=== PATIENT | male | born 1985 | race Two or more races ===

== ENCOUNTER 2025-09-25 22:35 | Emergency (ER) | payer OTHER ==
[~2025-09-25] VITALS: Ht 172.7 cm; Wt 85.8 kg
--- NOTE | 2025-09-25 23:21 | ED.PDOC ---
History of Present Illness HPI Comments 30-year-old male who presents to the ED with a chief complaint of flank pain onset today. Patient states he was sleeping, woke up due to RT flank pain, for the past day has been experiencing dysuria with burning sensation. Rates pain 08/23, experienced similar symptoms about 6 months ago, was seen at an ED, was told workup was negative. Denies nausea, vomiting, diarrhea, chest pain, dizziness, blurred vision, hematuria, hematemesis, blood in stool, melena, fever, chills. No other symptoms or modifying factors present at this time. PHYSICAL EXAM: General: Awake, alert and oriented. Skin: Skin in warm, dry and intact. Appropriate color for ethnicity. HEENT: The head is normocephalic and atraumatic. Conjunctivae are clear without exudates or hemorrhage. Sclera is non-icteric. Eyelids are normal in appearance without swelling or lesions. Oral mucosa is pink and moist Neck: The neck is supple with normal range of motion. No JVD. Cardiac: Heart rate and rhythm are normal. No murmurs, gallops, or rubs are auscultated. Respiratory: No signs of respiratory distress. Lung sounds are clear in all lobes bilaterally without rales, rhonchi, or wheezes. Abdominal: RT CVA tenderness Extremities: Upper and lower extremities are atraumatic in appearance without deformity or edema. Neurological: The patient is awake, alert and oriented to person, place, and time with normal speech. Speech is clear. There is no facial asymmetry. Psychiatric: Appropriate mood and affect. Good judgement and insight. REVIEW OF SYSTEMS: General: No fever, no chills, or fatigue HEENT: No sore throat, no earache, no congestion, no neck pain. Cardiac: No chest pain. No palpitations. Lungs: No shortness of breath, no cough. GI: No nausea, no vomiting, no diarrhea, no constipation, no abdominal pain : Dysuria, RT flank pain Musculoskeletal: No joint pain , no joint swelling, no extremity edema. Skin: No rash, no itching. Neuro: No headache, no dizziness, no weakness (And as sated in HPI) Chief Complaint: Flank Pain Time Seen by MD: 23:10 Reviewed Notes: Medications, Allergies Information Source: Patient Mode of Arrival: Ambulatory Severity: Moderate Timing: Hours Duration: Since onset Prehospital treatment: None Past Medical History PAST MEDICAL HISTORY: Denies Surgical History: Denies all surgeries Family History Family History: Reviewed,noncontributory to illness, No family hx of Cancer, No family hx of DM, No family hx of Heart dung, No family hx of HTN, No family hx ofKidney dung, No family hx of Liver dung, No family hx of Lung dung, No family hx of Stroke Social History Smoker: Non-Smoker Alcohol: Denies ETOH Use Drugs: Denies Drug Use Lives In: Home Was a procedure done? Was a procedure done?: No Differential Dx Considerations may include: Differential diagnosis includes but is not limited to pyelonephritis, nephrolithiasis, AAA, musculoskeletal pain, urinary tract infection, cholecystitis, appendicitis, other X-Ray, Labs, Meds, VS Vital Signs Date Time Temp Pulse Resp B/P (MAP) Pulse Ox O2 Delivery O2 Flow Rate FiO2 09/25/25 22:43 97.6 76 18 193/112 96 97.6 Lab Test 09/25/25 23:50 09/25/25 22:55 Range/Units White Blood Count 14.2 H 4.4-10.8 10^3/uL Red Blood Count 5.12 4.5-5.90 10^6/uL Hemoglobin 15.4 13.5-17.5 g/dL Hematocrit 44.4 41.0-53.0 % Mean Corpuscular Volume 86.9 80.0-100.0 fL Mean Corpuscular Hemoglobin 30.1 28.0-32.0 pg Mean Corpuscular Hemoglobin Concent 34.6 32.0-36.0 g/dL Red Cell Distribution Width 14.1 11.8-14.3 % Platelet Count 356 140-450 10^3/uL Mean Platelet Volume 8.2 6.9-10.8 fL Neutrophils (%) (Auto) 71.7 37.0-80.0 % Lymphocytes (%) (Auto) 21.3 10.0-50.0 % Monocytes (%) (Auto) 5.9 0.0-12.0 % Eosinophils (%) (Auto) 0.9 0.0-7.0 % Basophils (%) (Auto) 0.2 0.0-2.0 % Neutrophils # (Auto) 10.2 H 1.6-8.6 10 ^3/uL Lymphocytes # (Auto) 3.0 0.4-5.4 10 ^3/uL Monocytes # (Auto) 0.8 0-1.3 10 ^3/uL Eosinophils # (Auto) 0.1 0-0.8 10 ^3/uL Basophils # (Auto) 0 0-0.2 10 ^3/uL Nucleated Red Blood Cells 0.0 % Sodium Level 145 136-145 mmol/L Potassium Level 3.2 L 3.5-5.1 mmol/L Chloride Level 106 98-107 mmol/L Carbon Dioxide Level 23 20-31 mmol/L Anion Gap 16 H 5-15 Blood Urea Nitrogen 15 9-23 mg/dL Creatinine 1.53 H 0.700-1.30 mg/dL Glomerular Filtration Rate Calc 58 >90 mL/min BUN/Creatinine Ratio 9.8 L 10.0-20.0 Serum Glucose 184 H 74-106 mg/dL Calcium Level 9.4 8.7-10.4 mg/dL Urine Color Colorless Yellow Urine Clarity Clear Clear Urine pH 7.0 5.0-9.0 Urine Specific Wade 1.015 1.001-1.035 Urine Protein Negative Negative Urine Ketones Negative Negative Urine Blood Negative Negative /uL Urine Nitrite Negative Negative Urine Bilirubin Negative Negative Urine Urobilinogen Normal Negative mg/dL Urine Leukocyte Esterase Negative Negative /uL Urine RBC <1 0 - 3 /hpf Urine Microscopic WBC 1 0-3 /HPF Urine Squamous Epithelial Cells None seen <5 /hpf Urine Bacteria None seen None Seen /hpf Urine Glucose 2+ H Normal mg/dL . [place] [id number] Ph: [phone] DIAGNOSTIC IMAGING Diagnostic Imaging Report : [id number] Signed PATIENT: VISHAL CALDWELLCCT: [id number] UNIT: [id number] : 1985 LOC: ER ROOM / BED: / AGE / SEX: 40 / M ADM STATUS: REG ER SERVICE [id number] ORDERING PHYSICIAN: SIMIN POWERS MD PROCEDURE(s): ABPL - CT AB PEL WO CON-NO ORAL OR IV REASON: Flank Pain ORDER NUMBER(s): [id number], ACCESSION NUMBER(s): [id number] Exam: CT CT AB PEL WO CON-NO ORAL OR IV History: Flank Pain Comparison Study: CT ABD/PEL on DOS: 01/11/25 TECHNIQUE: Multidetector CT of the abdomen and pelvis was performed from lung bases to pubic symphysis. Imaging was performed without IV contrast. Axial, coronal, and sagittal multiplanar reformats were obtained from the axial data set by the technologist. RADIATION DOSE: CTDI vol 8.94 mGy. DLP 528.43 mGy.cm Findings: Limited evaluation of the solid organs in the absence of IV contrast. Lungs: Minimal basilar atelectasis. Radiopaque densities are seen within the posterior subcutaneous tissues. Liver: Unremarkable. Spleen: Small splenule. Pancreas: Unremarkable. Gallbladder: Unremarkable. Adrenals: Unremarkable Kidneys: 2 mm calculus situated within the distal right ureter with mild upstream hydroureteronephrosis and minimal right perinephric stranding. Pelvic Viscera: The urinary bladder is decompressed. Vasculature: Unremarkable. Retroperitoneum: Unremarkable. Bowel: No bowel obstruction. Portions of the bowel are decompressed, limiting assessment. The appendix is normal. Musculoskeletal: Unremarkable. Soft tissues: Unremarkable Impression: 1. 2 mm calculus situated within the distal right ureter with mild upstream hydroureteronephrosis and minimal right perinephric stranding. ATED BY: SAMI MAS MD DICTATED DATE/TIME: 09/26/251 SIGNED BY: SAMI MAS MD SIGNED DATE/TIME: 09/26/25 0002 CC: Time of 1ST Reevaluation: 23:40 Reevaluation 1ST: Unchanged Patient Education/Counseling: Need For Follow Up Family Education/Counseling: No Family Present SEPSIS Sepsis Screen Date sepsis recognized/suspect: Sep 25, 2025 Time Sepsis recognized/suspect: 2244 Recent Procedure: No On Antibiotic Therapy: No Respiratory Rate >20: No Heart Rate >90: No Temp<36 C (96.8 F) or >38.3 C: No SBP <90 or MAP <65 mmHG: No New Acute Mental Status Change: No Is the patient on CPAP, BIPAP,: No Physician Orders Ct Ab Pel Wo Con-No Oral Or Iv (09/25/25 23:28) Potassium Er Tablet (Klor-Con Tablet) (09/26/25 01:15) Vital Signs Date Time Temp Pulse Resp B/P (MAP) Pulse Ox O2 Delivery O2 Flow Rate FiO2 09/25/25 22:43 97.6 76 18 193/112 96 97.6 Laboratory Tests Test 09/25/25 23:50 White Blood Count 14.2 10^3/uL (4.4-10.8) H Departure 1 Departure Time of Disposition: 02:54 Impression: Primary Impression: Kidney stone Disposition: 01 HOME / SELF CARE / HOMELESS Condition: Stable Additional Instructions: INSTRUCCIONES DE NAHID DE Urgencias Instrucciones: Vita atentamente todas las instrucciones proporcionadas en socorro paquete. Aunque le hayan dado el nahid del Departamento de Emergencias, esto no significa que tenga un "certificado de buena alyssa". Hoy no se hernández realizado ningn diagnstico definitivo para michael sntomas. Es posible que ests en proceso de desarrollar shahab enfermedad grave. Es por eso que debe regresar al servicio de urgencias sin falta si presenta algn sntoma nuevo o que empeora (especialmente si michael sntomas incluyen dolor en el pecho, dificultad para respirar, dolor abdominal, fiebre, dolor de froy, confusin, dificultad para trever o caminar). Tambin es muy importante que consulte a un mdico de atencin primaria dentro de los prximos 3 a 5 haji para realizar un seguimiento. Si no puede conseguir shahab umang, regrese al servicio de urgencias para shahab nueva evaluacin.. Qu son los clculos renales? Los clculos renales son pequeas piedras que se delfino dentro de los riones cuando las sales y los minerales que se encuentran normalmente en la orina se acumulan y se endurecen. Los clculos renales generalmente se expulsan del cuerpo al orinar, devon a veces pueden quedarse atascados en el lavern (figura 1). Si eso sucede, los clculos pueden causar: ?Dolor en el costado o en la parte baja del ashanti del estmago ?Susan en la orina (que puede hacer que la orina luzca hung o bess) ?Nuseas o vmitos ?Dolor al orinar ?Necesidad de orinar en forma urgente Social Media Designer s si tengo clculos renales? Si more mdico o enfermero piensa que usted tiene clculos renales, puede indicarle un estudio de imagen para detectar los clculos. (Los estudios de imagen crean imgenes del interior del cuerpo). Social Media Designer se tratan los clculos renales? El tratamiento de cada persona es un poco distinto. El tratamiento adecuado para usted depender de: ?El tamao, el tipo y la ubicacin del clculo ?Cunto dolor sienta ?Cunto est vomitando Si more clculo es pequeo y solo causa sntomas leves, es posible que pueda quedarse en casa y esperar hasta que more cuerpo lo expulse en la orina. Si probar esta opcin, more mdico le dir qu hacer. [place] suele incluir: ?Beber mucho lquido ?Usar medicinas para el dolor o medicinas que faciliten la expulsin del clculo ?Orinar en un colador para atrapar el clculo cuando salga Si more clculo es rodo o causa sntomas graves, es posible que necesite tratamiento en el hospital. Los clculos renales que no se expulsan naturalmente se pueden tratar con: ?"Litotripsia por onda de choque" Shahab mquina usa ondas sonoras para romper los clculos en pedazos ms pequeos. Socorro procedimiento no incluye ciruga, devon puede ser doloroso. ?"Nefrolitotoma percutnea" Socorro es un tipo especial de ciruga en la que un mdico hace orificios muy pequeos en more piel, y pasa unos instrumentos minscu los a travs de los orificios y dentro del rin. Luego, elimina el clculo. ?"Ureteroscopa" Un mdico introduce un tubo martinez en more cuerpo de la misma manera que sale la orina. Usa instrumentos ubicados en el extremo del tubo para romper o sacar los clculos. A qu problemas moustapha prestar atencin? Si intentar expulsar el clculo renal en more casa, llame a more mdico o enfermero para que lo asesore si: ?No orina desde hace ms de 8 horas. ?Tiene fiebre de 100.4 F (38 C) o ms, o escalofros. ?More orina es opaca, huele mal o tiene ms susan que antes. ?El dolor del clculo renal empeora mucho y la medicina para el dolor no ayuda. ?Vomita y no puede retener los lquidos. ?El dolor no desaparece en 1 a 2 semanas Qu puedo hacer para no volver a tener clculos renales? Amisha juan agua. Es posible que tambin deba hacer cambios en more dieta, dependiendo de la composicin de michael clculos. Si es as, el mdico o enfermero puede decirle qu alimentos evitar. El mdico o enfermero tambin podra rece tarle medicinas nuevas para evitar que se formen nuevos clculos renales. e-Prescriptions Ibuprofen (Ibuprofen) 600 Mg Tab 1 TAB PO TID for 5 Days, #15 TAB Prov: SIMIN POWERS MD 09/26/25 Acetaminophen (Acetaminophen Er) 650 Mg Tab 650 MG PO TIDPRN PRN, #15 TAB Prov: SIMIN POWERS A 09/26/25 Ketorolac Tromethamine (Ketorolac Tromethamine) 10 Mg Tab 1 TAB PO TID, #15 TAB Prov: SIMIN POWERS MD 09/26/25 Comments MDM: Extensive evaluation was performed in attempt to identify or rule out: (See differential diagnosis section) The following tests were ordered, and results were reviewed by me and discussed with patient: (See diagnostic results section) The following test were independently interpreted by me: N/A I reviewed and agreed with the following test results read by other providers: N/A I reviewed the following notes from the pt's past medical encounters: N/A Additional information was gathered from interviewing the following independent historians: N/A Discussion of management or test interpretation with external physician/other qualified health respiratory care assistant: N/A Addressed [ ]one or more chronic illnesses with severe exacerbation, progression, or side effects of treatment: [ ]an acute or chronic illness that poses a threat to life or bodily function: [ ] Decision regarding hospitalization or escalation of hospital level of care: Risk and benefits of admission for further treatment of patient's condition was considered. Due to patient's current clinical condition, high risk of decline and poor outcome if discharged and need for further inpatient management and monitoring, patient will be admitted to the hospital. Drug therapy requiring intensive monitoring for toxicity: N/A Parenteral controlled substances: N/A Decision regarding elective major surgery with identified patient or procedure risk factors: N/A Decision regarding emergency major surgery: N/A Decision not to resuscitate or to de-escalate care because of poor prognosis: N/A Diagnosis or treatment significantly limited by social determinants of health: N/A Decision regarding hospitalization or escalation of hospital level of care: Risks and benefits of admission for further treatment of patient's condition was considered however due to patient's stable condition patient will be discharged to follow up closely or return to care for worsening of condition or inability to follow up. Critical Care Note Critical Care Time?: No Stability Stability form required: No Heart Score Heart Score: Heart Score Response (Comments) Value History N/A 0 EKG N/A 0 Age N/A 0 Risk Factors N/A 0 Troponin N/A 0 Total 0 I personally scribed for SIMIN POWERS MD ([email or web address]) on 09/25/25 at 23:21. Electronically submitted by Nuzhat Ruiz ([email or web address]). I personally scribed for SIMIN POWERS MD ([email or web address]) on 09/26/25 at 00:11. Electronically submitted by Nuzhat Ruiz ([email or web address]). I personally scribed for SIMIN POWERS MD ([email or web address]) on 09/26/25 at 00:15. Electronically submitted by Nuzhat Ruiz ([email or web address]). SIMIN POWERS MD Sep 25, 2025 23:21
--- NOTE | 2025-09-26 00:04 | DVH ---
Exam: CT CT AB PEL WO CON-NO ORAL OR IV History: Flank Pain Comparison Study: CT ABD/PEL on DOS: 01/11/25 TECHNIQUE: Multidetector CT of the abdomen and pelvis was performed from lung bases to pubic symphysis. Imaging was performed without IV contrast. Axial, coronal, and sagittal multiplanar reformats were obtained from the axial data set by the technologist. RADIATION DOSE: CTDI vol 8.94 mGy. DLP 528.43 mGy.cm Findings: Limited evaluation of the solid organs in the absence of IV contrast. Lungs: Minimal basilar atelectasis. Radiopaque densities are seen within the posterior subcutaneous tissues. Liver: Unremarkable. Spleen: Small splenule. Pancreas: Unremarkable. Gallbladder: Unremarkable. Adrenals: Unremarkable Kidneys: 2 mm calculus situated within the distal right ureter with mild upstream hydroureteronephrosis and minimal right perinephric stranding. Pelvic Viscera: The urinary bladder is decompressed. Vasculature: Unremarkable. Retroperitoneum: Unremarkable. Bowel: No bowel obstruction. Portions of the bowel are decompressed, limiting assessment. The appendix is normal. Musculoskeletal: Unremarkable. Soft tissues: Unremarkable Impression: 1. 2 mm calculus situated within the distal right ureter with mild upstream hydroureteronephrosis and minimal right perinephric stranding.
[2025-09-26 00:30] LABS: Hematocrit 44.4 % (41.0-53.0); Hemoglobin 15.4 g/dL (13.5-17.5); Mean Corpuscular Hemoglobin 30.1 pg (28.0-32.0); Mean Corpuscular Volume 86.9 fL (80.0-100.0); Nucleated Red Blood Cells % 0.0 %
[2025-09-26 00:40] LABS: Chloride 106 mmol/L (98-107); Sodium 145 mmol/L (136-145)
[2025-09-26 00:41] LABS: Anion Gap 16 (5-15); Carbon Dioxide 23 mmol/L (20-31)
[2025-09-26 00:42] LABS: Calcium 9.4 mg/dL (8.7-10.4)
[2025-09-26 00:47] LABS: BUN/Creatinine Ratio 9.8 (10.0-20.0); Blood Urea Nitrogen 15 mg/dL (9-23)
[2025-09-26 00:53] LABS: Glucose 184 mg/dL (74-106); Potassium 3.2 mmol/L (3.5-5.1)
[2025-09-26 01:07] LABS: Urine Protein, UAD Negative (Negative)
[2025-09-26] MEDS ORDERED: POTASSIUM CHL 20 Meq TABLET PO ONE (01:15)
[2025-09-26] MEDS ORDERED: IBUP-1454 PO (02:57)
[2025-09-26] MEDS ORDERED: ACET650T12 PO (02:57)
[2025-09-26] MEDS ORDERED: KETO10TA PO (02:57)
[2025-09-26] MEDS: ACETAMINOPHEN 325 MG TAB PO ONE (03:02)
[2025-09-26] MEDS: KETOROLAC TROMETH 30 MG/ML 1ML VIAL IM ONE (03:03)
[2025-09-26 05:36] VITALS: BP 154/83; PULSE 57; RESP 20; TEMP 98; O2SAT 97
== END 2025-09-26 10:33 | disposition home or self-care (01) ==
LOC: ER 22:35
DX: N20.0 Calculus of kidney (principal)
CPT/HCPCS: 36415; 74176; 80048; 81001; 85025; 96372; 99285; J1885